=== PATIENT | female | born 1970 | race Caucasian/White ===

== ENCOUNTER → 2016-09-01 | Day surgery (SDC) | payer OTHER ==
--- NOTE | 2016-08-29 10:06 | TH ---
cc: GRAY CANELA M.D. DATE 08/29/2016 DATE OF 07/13/1995 PROCEDURE TO BE PERFORMED Bilateral revision augmentation. HISTORY OF PRESENT ILLNESS This is a pleasant 42-year-old female who underwent an augmentation mammoplasty back on 11/30/2014 requiring an augmentation revision January of 2015. She returns today with weakened lower lateral poles reason for which we are to proceed with the revision. Her current implant is a Cuddy style 5000 volume 650 ultra high profile. PAST MEDICAL HISTORY Otherwise unremarkable. She did have a: 1. Modified abdominoplasty by ut back in November. 2. She did have a in 1994. ALLERGIES SULFA PHYSICAL EXAM CONSTITUTIONAL: General appearance. The patient is a well-developed female in no acute distress. Body habitus is within normal limits. There appear to be no deformities. Appears to have attention to grooming. HEENT: Eyes Conjunctivae and lids are within normal anatomical limits. The pupils are reactive to light and accommodation, size, and symmetry. There is no evidence of exudate, hemorrhage, or vessel change. Ears, mouth, nose, and throat The external inspection of the ears and nose fails to demonstrate any pathology, scars, lesions, or masses. Nasal mucosa, septum, and turbinates appear to be well hydrated as well as the lips and gums. No evidence of masses in the hypopharynx or submental area. RESPIRATORY: The patient shows no evidence of intercostal refractions. Otherwise, lungs are clear to auscultation without any abnormal sounds or rubs. CARDIOVASCULAR: The patient has a normal heart rate and rhythm. There is no evidence of noticed carotid bruits. Femoral pulses and pedal pulses in extremities are also within normal limits. GASTROINTESTINAL/ABDOMEN: Soft with no evidence of masses or tenderness. Unable to palpate the liver or spleen. No evidence of hernia. MUSCULOSKELETAL: Appears to be reasonable range of motion on the head, neck, spine, ribs, pelvis, right upper extremity, left upper extremity, right lower extremity, and left lower extremity. The muscle strength and tone appears to be equal and within accepted limits. SKIN: There is no rashes, lesions, or ulcers on the trunk, back, and extremities. NEUROLOGICAL: Examination is grossly normal. PSYCHIATRIC: The patient appears to have good orientation of time, place, and person. Does not appear to have any mood effects of depression, anxiety, or agitation. PLAN As above. MD LENNOX Zamarripa/EULOGIO /9:41 AM /9:57 AM
[~2016-09-01] MED LIST: ACETAMINOPHEN 1000 MG/100 ML VIAL IV ONE; ACETAMINOPHEN/HYDROcodone 325 MG/5 MG TAB ONE; BACITRACIN IM FOR SOLN 50,000 UNIT VIAL ONE; BUPIVACAINE/EPINEPHRINE 0.5% PF 30 ML VIAL ONE; CIPR500T2 PO; GENTAMICIN SULFATE 80 MG/2 ML VIAL ONE; LACTATED RINGER'S 1000 ML INJ 1,000 ML ONE; LIDOCAINE 2%/EPINEPHrine PF 1:200,000 20ML SDV ONE; LORT7.5T3 PO; MEPERIDINE HCL 25 MG/ML VIAL ONE; MIDAZOLAM HCL 2 MG/2 ML VIAL ONE; MOTR200T PO; ONDANSETRON HCL 4 MG/2 ML VIAL IV PUSH ONE; PROPOFOL 200 MG/20 ML AMP IV ONE; SODIUM CHLORIDE 0.9% 20 ML VIAL ONE; SODIUM CHLORIDE 0.9% INJ 10 ML ONE; Z.0.BCPILL PO; ceFAZolin INJ 1,000 MG VIAL ONE
--- NOTE | 2016-09-01 12:44 | TN ---
cc: MEHRDAD SPARKS M.D. DATE OF SURGERY: 09/01/2016 PREOPERATIVE DIAGNOSIS Status post augmentation mammoplasty with further laxity on the lower poles. POSTOPERATIVE DIAGNOSIS Status post augmentation mammoplasty with further laxity on the lower poles. PROCEDURE Revision augmentation. SURGEON Mehrdad Sparks ANESTHESIA LMA general; 60 cc of 1% lidocaine with epinephrine. COMPLICATIONS None. DETAILS OF PROCEDURE She was properly consented, marked and properly anesthetized. The skin was sterilized with Betadine solution and sterile draping applied. Local anesthetic was infiltrated. Through the previous inframammary incision a trapdoor incision was carried out opening the capsule and the implant was properly removed without any difficult and put in a sterile container with antibiotic solution. After irrigating the pocket lateral and inferior capsulorrhaphies were done utilizing multiple layers of [id number]. With this I proceeded and performed intervention. The patient had a previous ADM layer in the right breast where it was previously replaced for unevenness in healing. Either way I proceeded and utilized this as a scaffold to reinforce the inferior capsulorrhaphy which worked actually really well. After assuring that and certainly isolating the NAC from the beginning and now the skin the implant was reintroduced. Touches were done where needed. The contralateral side was approached in exactly the same manner. The patient was sat up and after assuring best symmetry possible the wound was closed utilizing multiple closure layers of 2-0 Monocryl suture on the breast capsule, breast parenchyma, dermis and subcu. After Mastisol and Steri-Strips were applied and a snug brassiere was applied thereafter. Overall the patient tolerated the procedure well. She was awakened and extubated in the operating room, transferred back to the post-anesthesia care unit in stable condition. No complications were appreciated. The patient tolerated the procedure fairly well. MD LENNOX Zamarripa/ADILSON /12:21 PM /12:37 PM
== END | disposition home or self-care (01) ==
LOC: ESDC 10:13
PROVIDERS: ATTEND Plastic Surgery
DX: Z41.1 Encounter for cosmetic surgery (principal)
CPT/HCPCS: 00402; 19325; J0131; J0690; J1580; J2175; J2250; J2405; J3010; J7120